=== PATIENT | female | born 1955 | race Caucasian/White ===

== ENCOUNTER → 2022-09-19 09:23 | Outpatient (CLI) | payer MEDICARE, BC, SELFPAY ==
--- NOTE | 2022-09-19 09:27 | XR_ITS ---
FINAL REPORT TECHNIQUE: Bone densitometry calculations of the lumbar spine and left hip were obtained. CLINICAL HISTORY: post menopausal FINDINGS: DEXA BONE DENSITY AXIAL SKELETON Using L1-4, the bone mineral density of the spine is 1.030 g/cm2, corresponding to T-score of -0.2. Note these values are falsely elevated secondary to hypertrophic changes. Using the left hip, the bone mineral density of the femoral neck is 0.615 g/cm2, corresponding to a T-score of -2.7. NOTE: T-score: Standard deviation compared with peak bone mass of young adult mean. *Following the recommendations of the International Society of Bone Densitometry, classification of hip BMD is based on the lower of two T-scores; total hip or femoral neck. IMPRESSION: Osteoporosis: Lowest T-score is at or below -2.5. This patient's T-score meets the World Health Organization criteria for osteoporosis. Reviewed, Interpreted and Dictated by Santosh Quiñones III, MD Transcribed by Poly Conti Authenticated and [facility]
--- NOTE | 2022-09-19 09:27 | MM_ITS ---
PROCEDURE INFORMATION: Exam: MG Bilateral Screening 3D Mammography Exam date and time: 09/19/2022 9:42 AM Age: 67 years old Clinical indication: Screening examination TECHNIQUE: Imaging protocol: Bilateral Screening tomosynthesis and 2D mammography including computer-aided detection (CAD) when performed. COMPARISON: No relevant prior studies available. FINDINGS: MAMMOGRAPHY: Breast composition: There are scattered areas of fibroglandular density. Mass: None. Architectural distortion: None. Calcifications: No suspicious calcifications. Asymmetric density: None. Skin thickening: None. Axillary adenopathy: None. IMPRESSION: No mammographic evidence of malignancy. Annual screening is recommended unless otherwise clinically indicated. ASSESSMENT: BI-RADS Category 1: Negative
== END ==
PROVIDERS: Visit Provider Family Medicine
DX: Z12.31 Encounter for screening mammogram for malignant neoplasm of breast (principal); Z78.0 Asymptomatic menopausal state
CPT/HCPCS: 77063; 77067; 77080

== ENCOUNTER 2023-06-15 09:36 | Emergency (ER) | payer MEDICARE, BC, SELFPAY ==
[2023-06-15 09:38] VITALS: BP 168/71; PULSE 62; RESP 19; TEMP 36.6; O2SAT 98; BMI 53.1
[2023-06-15 09:43] VITALS: BP 168/71; PULSE 56; O2SAT 100
--- NOTE | 2023-06-15 09:46 | PC.NURSE ---
Dr. Villarreal at [facility] for pt eval
[2023-06-15 10:01] VITALS: BP 155/58; PULSE 49; RESP 18; O2SAT 100
--- NOTE | 2023-06-15 10:02 | HMH.EDGENADL ---
Discharge Plan Disposition Patient Disposition: Home, Self-Care Prescriptions Prescriptions: New prednisone 20 mg tablet 40 mg PO BID 5 Days Qty: 20 0RF No Action aspirin 325 mg Tablet 325 mg PO DAILY alendronate 70 mg tablet 70 mg PO DIRECTED diltiazem HCl 360 mg capsule,extended release 24hr 360 mg PO DAILY omeprazole 20 mg capsule,delayed release(DR/EC) 20 mg PO DAILY furosemide 20 mg tablet 20 mg PO DAILYP PRN (Reason: Fluid) lovastatin 20 mg tablet 20 mg PO DAILY Referrals Follow up/Referrals: Myrtle Jeffries MD [Primary Care Provider] - See instructions Devante Velásquez PT [Physical Therapist] - See instructions Activity Restrictions/Add. Instructions Additional Instructions/Restrictions: Take prednisone once daily in the morning for 5 days. Physical therapy referral has also been placed and information is here, you can call Saturday to schedule appointments. Call your family doctor to establish care for this visit to the emergency department and schedule follow-up within 48 hours to ensure improvement. If you have any worsening of your condition or any other concerning signs or symptoms, return to the emergency department or your primary care doctor for further evaluation. Clinical Impressions Clinical Impression: Cervical radiculopathy at C6 Discharge ED Provider: Martin Villarreal General Adult HPI General Chief complaint: PAIN Stated complaint: left shoulder and arm pain Time Seen by Provider: 06/15/23 09:40 Mode of Arrival: Family Vehicle Source of Information: Patient Limitations: No Limitations Description of Symptoms (Recalled from ER Triage Doc. by RN): Pt c/o left shoulder pain that began upon waking up on . Reports many years ago she had a pinched nerve in her left shoulder. Reports tylenol helps but has been worsening. She has a hx of afib and takes ASA 325mg daily & Cardizem 360mg daily. Denies any SOA, chest pain, or palpitations. She also reports parathesia and shooting pain her left arm. History of Present Illness HPI narrative: Is a 67-year-old female with history of chronic left shoulder pain, A-fib on daily aspirin and Cardizem presenting with left shoulder pain. Patient states that she had trouble with her shoulder about 10 to 12 months ago, made better with steroid, muscle relaxer. Has never sought physical therapy for it. 2 days prior to arrival, patient woke up on 9/7 with pain in her left shoulder. Had intermittent shooting pain down her right arm toward her thumb with associated tingling in her hand. Denies injury, heavy lifting, weakness, left lower extremity symptoms, any other neurologic deficits, chest pain, shortness of breath, or any other concerns. Related Data Home Medications Medication Instructions Recorded Confirmed alendronate 70 mg tablet 70 mg PO DIRECTED osteo 06/15/23 06/15/23 aspirin 325 mg tablet 325 mg PO DAILY afib 06/15/23 06/15/23 diltiazem HCl 360 mg 360 mg PO DAILY afib 06/15/23 06/15/23 capsule,extended release 24 hr furosemide 20 mg tablet 20 mg PO DAILYP PRN Fluid 06/15/23 06/15/23 lovastatin 20 mg tablet 20 mg PO DAILY High Cholesterol 06/15/23 06/15/23 omeprazole 20 mg capsule,delayed 20 mg PO DAILY gerd 06/15/23 06/15/23 release Previous Rx's Medication Instructions Recorded prednisone 20 mg tablet 40 mg PO BID 5 days #20 tabs 06/15/23 Allergies Allergy/AdvReac Type Severity Reaction Status Date / Time No Known Allergies Allergy Verified 06/15/23 10:07 [facility] Disclaimer: The information contained in this section may have been updated after the patient was seen, as this information can be updated by other users. Medical History (Updated 06/15/23 @ 10:10 by Martin Villarreal MD) A-fib Fluid overload GERD (gastroesophageal reflux disease) Osteoporosis Surgical History (Updated 06/15/23 @ 10:07 by Fiorella Jaquez RN) Hx of cholecystectomy Social History [facility]
[2023-06-15 10:33] VITALS: BP 150/60; PULSE 52; RESP 17; TEMP 36.7; O2SAT 100
== END 2023-06-15 10:35 | disposition home or self-care (01) ==
PROVIDERS: Emergency Provider Emergency Medicine; PCP Family Medicine
DX: M54.12 Radiculopathy, cervical region (principal); M25.512 Pain in left shoulder; I48.91 Unspecified atrial fibrillation; K21.9 Gastro-esophageal reflux disease without esophagitis; M81.8 Other osteoporosis without current pathological fracture; Z79.82 Long term (current) use of aspirin
CPT/HCPCS: 99283

== ENCOUNTER → 2023-06-20 12:45 | Outpatient (CLI) | payer MEDICARE, BC, SELFPAY ==
--- NOTE | 2023-06-20 12:51 | XR_ITS ---
FINAL REPORT CLINICAL HISTORY: CERVICAL DISC DISORDER W/MYELOPATHY COMPARISON: None FINDINGS: CERVICAL SPINE 7 views were obtained. There is no acute fracture or malalignment. Inter-vertebral disc and vertebral body heights are preserved. Cervical lordosis is preserved. Facet joints are properly aligned. There is mild degenerative change with multilevel osteophytes. IMPRESSION: Degenerative change without acute process. Reviewed, Interpreted and Dictated by Santosh Quiñones III, MD Transcribed by Ale Pascal Authenticated and . [facility]
== END ==
PROVIDERS: PCP Family Medicine; Visit Provider Family Medicine
DX: M50.03 Cervical disc disorder with myelopathy, cervicothoracic region (principal)
CPT/HCPCS: 72050

== ENCOUNTER 2023-09-25 10:41 | Emergency (ER) | payer MEDICARE, BC, SELFPAY ==
[2023-09-25] VITALS (14 sets, daily range): BP systolic 99–142; BP diastolic 38–58; PULSE 43–59; RESP 14–19; TEMP 37.1; O2SAT 97–100; BMI 49.8
--- NOTE | 2023-09-25 10:58 | CT_ITS ---
FINAL REPORT TECHNIQUE: Axial images through the abdomen and pelvis were performed without contrast. This study was performed with techniques to keep radiation doses as low as reasonably achievable, (ALARA). Individualized dose reduction techniques using automated exposure control or adjustment of mA and/or kV according to the patient's size were employed. CLINICAL HISTORY: right flank and midline L spine pain non trauma FINDINGS: Abdomen: The lung bases are clear. There is a small sliding-type hiatal hernia. The liver parenchyma is homogeneous. The gallbladder is surgically absent. The spleen, pancreas, adrenals and kidneys are unremarkable. Pelvis: The urinary bladder is unremarkable. The appendix is normal. The uterus is anteverted and eccentric to the left. There are few small diverticuli throughout the colon, particularly in the ascending colon. IMPRESSION: No renal stone or obstruction. Reviewed, Interpreted and Dictated by Vimal Owen MD Transcribed by Sarah Matute Authenticated and . [facility]
--- NOTE | 2023-09-25 10:58 | CT_ITS ---
FINAL REPORT TECHNIQUE: Axial images were obtained of the lumbar spine by computed tomography. Coronal and sagittal reconstruction process performed. This study was performed with techniques to keep radiation doses as low as reasonably achievable (ALARA). Individualized dose reduction techniques using automated exposure control or adjustment of mA and/or kV according to the patient''s size were employed. CLINICAL HISTORY: right flank and midline L spine pain non trauma FINDINGS: Lumbar vertebrae show normal height. There is moderate disc space narrowing, most evident at L2-3 and L5-S1. There is moderate anterior osteophyte formation throughout the lower thoracic and upper lumbar spine. There is no malalignment. The facets are properly aligned. T12-L1: No significant disc bulge or protrusion. L1-2: No significant disc bulge or protrusion. L2-3: Mild diffuse disc bulge is present with mild bilateral neural foraminal narrowing. L3-4: Mild diffuse disc bulge is present with mild bilateral neural foraminal narrowing. L4-5: Moderate diffuse disc bulge is present. There is mild to moderate bilateral neural foraminal narrowing. L5-S1: Mild diffuse disc bulge is present with mild bilateral neural foraminal narrowing. IMPRESSION: Diffuse changes of degenerative disc disease, most evident at L4-5. Reviewed, Interpreted and Dictated by Vimal Owen MD Transcribed by Sarah Matute Authenticated and [facility]
--- NOTE | 2023-09-25 10:59 | HMH.EDGENADL ---
Discharge Plan Disposition Patient Disposition: Home, Self-Care Prescriptions Prescriptions: New ibuprofen 800 mg tablet 800 mg PO TID PRN (Reason: pain) 7 Days Qty: 20 0RF cyclobenzaprine 5 mg tablet 5 mg PO TID PRN (Reason: muscle spasm) 5 Days Qty: 15 0RF cefdinir 300 mg capsule 300 mg PO BID 7 Days Qty: 14 0RF No Action aspirin 325 mg Tablet 325 mg PO DAILY alendronate 70 mg tablet 70 mg PO DIRECTED diltiazem HCl 360 mg capsule,extended release 24hr 360 mg PO DAILY omeprazole 20 mg capsule,delayed release(DR/EC) 20 mg PO DAILY furosemide 20 mg tablet 20 mg PO DAILYP PRN (Reason: Fluid) lovastatin 20 mg tablet 20 mg PO DAILY prednisone 20 mg tablet 40 mg PO BID 5 Days Qty: 20 0RF Referrals Follow up/Referrals: Myrtle Jeffries MD [Primary Care Provider] - See instructions Activity Restrictions/Add. Instructions Additional Instructions/Restrictions: No evidence of any kidney stone or other emergent medical condition other than a urinary tract infection. Given your flank pain we will treat you for pyelonephritis which is an infection of your kidney but I suspect you have a component of a musculoskeletal strain which we will treat you for as well. Please return emergency department with high fevers pain that is unrelenting or any other concerns. Otherwise you may follow-up with primary care doctor as previously instructed. Clinical Impressions Clinical Impression: Acute right flank pain, Lumbar strain, Pyelonephritis Instructions Patient Instructions: DI for Acute Abdominal Pain Discharge ED Provider: Clarice Keating General Adult HPI General Chief complaint: Abdominal Pain Stated complaint: right side pain, back pain Time Seen by Provider: 09/25/23 10:51 History of Present Illness HPI narrative: Patient is a 68-year-old female presents today with lower back pain and right flank pain has been nontraumatic over the last 3 weeks and has been progressively worsening. She has a history of cervical radiculopathy and known osteoporosis denies any specific trauma. Denies any radiation down to her lower legs, urinary retention, bowel or bladder incontinence, lower extremity paralysis, history of cancer, history of fever or injection drug use or any saddle anesthesia. States the pain has been in the midline but also on the right flank radiating into the right groin. Denies any hematuria history of kidney stones any dysuria urgency frequency. Dates this is primarily worse with movement and touch. Related Data Home Medications Medication Instructions Recorded Confirmed alendronate 70 mg tablet 70 mg PO DIRECTED osteo 06/15/23 06/15/23 aspirin 325 mg tablet 325 mg PO DAILY afib 06/15/23 06/15/23 diltiazem HCl 360 mg 360 mg PO DAILY afib 06/15/23 06/15/23 capsule,extended release 24 hr furosemide 20 mg tablet 20 mg PO DAILYP PRN Fluid 06/15/23 06/15/23 lovastatin 20 mg tablet 20 mg PO DAILY High Cholesterol 06/15/23 06/15/23 omeprazole 20 mg capsule,delayed 20 mg PO DAILY gerd 06/15/23 06/15/23 release Previous Rx's Medication Instructions Recorded prednisone 20 mg tablet 40 mg PO BID 5 days #20 tabs 06/15/23 cefdinir 300 mg capsule 300 mg PO BID 7 days #14 caps 09/25/23 cyclobenzaprine 5 mg tablet 5 mg PO TID PRN muscle spasm 5 09/25/23 days #15 tabs ibuprofen 800 mg tablet 800 mg PO TID PRN pain 7 days #20 09/25/23 tabs Allergies Allergy/AdvReac Type Severity Reaction Status Date / Time No Known Allergies Allergy Verified 06/15/23 10:07 [facility] Disclaimer: The information contained in this section may have been updated after the patient was seen, as this information can be updated by other users. Medical History (Updated 09/25/23 @ 13:12 by Clarice Keating MD) A-fib Fluid overload GERD (gastroesophageal reflux disease) Osteoporosis Surgical History (Updated 06/15/23 @ 10:07 by Fiorella Jaquez RN) Hx of c
[2023-09-25 11:05] LABS: Microscopic, Urine URINE MICROSCOPIC (MICROSCOPIC)
[2023-09-25 11:18] LABS: Basophils % 0.6 % (0.1-2.0); Eosinophils # 0.1 K/mm3 (0.0-0.4); Eosinophils % 1.3 % (0.1-12.0); Hematocrit 41.4 % (37.0-47.0); Hemoglobin 13.8 g/dL (12.2-16.2); Lymphocytes # 1.4 K/mm3 (0.7-4.5); Lymphocytes % 24.4 % (10-50); Mean Corpuscular HGB Conc 33.4 g/dL (31.8-35.4); Mean Corpuscular Hemoglobin 31.8 pg (27.0-31.2); Mean Corpuscular Volume 95.4 fl (81-99); Mean Platelet Volume 6.6 fl (7.4-10.4); Monocytes # 0.3 K/mm3 (0.1-1.0); Monocytes % 4.5 % (1.7-9.3); Neutrophils # 3.9 K/mm3 (1.8-7.8); Neutrophils % 69.2 % (37.0-80.0); Platelet Count 307 K/mm3 (142-424); Red Blood Count 4.34 M/mm3 (4.20-5.40); Red Cell Distribution Width 13.7 % (11.5-17.5); White Blood Count 5.7 K/mm3 (4.8-10.8)
[2023-09-25 11:19] LABS: Chloride 107 mmol/L (98-107); Potassium 4.1 mmoL/L (3.5-5.1); Sodium 142 mmol/L (136-145)
[2023-09-25 11:22] LABS: Alanine Aminotransferase 26 U/L (12-78); Albumin Level 4.5 g/dl (3.5-5.0); Albumin/Globulin Ratio 1.3 (1.1-1.8); Alkaline Phosphatase 176 U/L (38-126); Anion Gap 13.1 mEq/L (5-15); Aspartate Amino Transferase 31 U/L (14-36); Bilirubin,Total 0.8 mg/dl (0.2-1.3); Blood Urea Nitrogen 21 mg/dl (7-17); Carbon Dioxide 26 mmol/L (22.0-30.0); Creatinine Clearance Estimated 37 mL/min (50-200); Estimated Glomerular Filt Rate 41 ml/min (>60); GFR (African American) 50 ML/MIN (>60); Globulin 3.6 g/dL (1.3-3.2); Total Protein,Serum 8.1 g/dl (6.3-8.2)
[2023-09-25 11:23] LABS: Calcium 8.8 mg/dl (8.4-10.2); Glucose 111 mg/dl (74-100)
[2023-09-25 11:29] LABS: Appearance,Urine CLEAR (Clear); Blood, Urine Negative (Negative); Color,Urine YELLOW (Yellow); Glucose,Urine (UA) Negative (Negative); Ketones,Urine Negative (Negative); Leukocyte Esterase,Urine 1+ (Negative); Nitrate,Urine Negative (Negative); PH,Urine 5.5 (5.0-8.5); Protein,Urine TRACE (Negative); Specific Gravity, Urine >= 1.030 (1.005-1.030); Urobilinogen,Urine 0.2 EU/dl (0.2)
[2023-09-25 11:52] LABS: Bilirubin,Urine 1+ (Negative)
[2023-09-25 12:04] LABS: Bacteria,Urine 2+ /lpf; WBC,Urine 20-50 #/hpf (0-3)
--- NOTE | 2023-09-29 16:49 | PC.NURSE ---
urine results show K.pneumoniae, pt dc on cefdinir, aware, no further action
== END 2023-09-25 13:47 | disposition home or self-care (01) ==
PROVIDERS: Emergency Provider Student in an Organized Health Care Education/Training Program; PCP Family Medicine
DX: R10.9 Unspecified abdominal pain (principal); S39.012A Strain of muscle, fascia and tendon of lower back, initial encounter; N12 Tubulo-interstitial nephritis, not specified as acute or chronic; I48.91 Unspecified atrial fibrillation; X58.XXXA Exposure to other specified factors, initial encounter
CPT/HCPCS: 72131; 74176; 80053; 81001; 85025; 87086; 96361; 96374; 99285

== ENCOUNTER 2023-12-23 08:21 | Outpatient (CLI) | payer MEDICARE, BC, SELFPAY ==
--- NOTE | 2023-12-23 08:25 | MM_ITS ---
PROCEDURE INFORMATION: Exam: MG Bilateral Screening 3D Mammography Exam date and time: 12/23/2023 8:17 AM Age: 68 years old Clinical indication: Screening examination TECHNIQUE: Imaging protocol: Bilateral Screening tomosynthesis and 2D mammography including computer-aided detection (CAD) when performed. COMPARISON: MG MM DIG SCREENING MAMM BI W/CAD 09/19/2022 9:42 AM FINDINGS: MAMMOGRAPHY: Breast composition: There are scattered areas of fibroglandular density. Mass: None. Architectural distortion: None. Calcifications: No suspicious calcifications. Asymmetric density: None. Skin thickening: None. Axillary adenopathy: None. IMPRESSION: No mammographic evidence of malignancy. Annual screening is recommended unless otherwise clinically indicated. ASSESSMENT: BI-RADS Category 1: Negative
--- NOTE | 2023-12-23 08:25 | XR_ITS ---
FINAL REPORT CLINICAL HISTORY: SCREENING COMPARISON: None FINDINGS: Using L1-4, the bone mineral density of the spine is 1.203 g/cm2, corresponding to T-score of 1.4 which is within normal limits but likely falsely elevated secondary to hypertrophic changes. Using the left hip, the bone mineral density of the femoral neck is 0.662 g/cm2, corresponding to a T-score of -2.3 which is consistent with low bone density. Using the right hip, the bone mineral density of the femoral neck is 0.654 g/cm2, corresponding to a T-score of -1.8 which is consistent with low bone density. FRAX not reported because patient being treated for osteoporosis. NOTE: T-score: Standard deviation compared with peak bone mass of young adult mean. *Following the recommendations of the International Society of Bone densitometry, classification of hip BMD is based on the lower of two T-scores; total hip or femoral neck. IMPRESSION: Diminished bone mineral density consistent with low bone density. Reviewed, Interpreted and Dictated by Santosh Quiñones III, MD Transcribed by Ale Pascal Authenticated and . [facility]
--- NOTE | 2023-12-23 09:35 | XR_ITS ---
FINAL REPORT CLINICAL HISTORY: left knee pain, arthritis FINDINGS: Three views of the left knee reveal no evidence of fracture or dislocation. The bony alignment is normal. There are moderate and severe degenerative changes, worse involving the medial compartment. There is no evidence of joint effusion. No localized soft tissue abnormality is seen. IMPRESSION: Degenerative changes with no acute abnormality identified. Reviewed, Interpreted and Dictated by Santosh Quiñones III, MD Transcribed by Tati Siegel Authenticated and [facility]
--- NOTE | 2023-12-23 09:35 | XR_ITS ---
FINAL REPORT CLINICAL HISTORY: BILATERAL KNEE PAIN COMPARISON: None FINDINGS: Three views of the right knee reveal no evidence of fracture or dislocation. The bony alignment is normal. Severe degenerative change is present in the knee, most severe in the medial compartment. There is no evidence of joint effusion. No localized soft tissue abnormality is identified. IMPRESSION: Severe degenerative change, most severe in the medial compartment. Reviewed, Interpreted and Dictated by Santosh Quiñones III, MD Transcribed by Celestina Irvin Authenticated and [facility]
== END 2023-12-23 23:59 ==
LOC: RAD 08:21
PROVIDERS: PCP Family Medicine; Visit Provider Family Medicine
DX: Z12.31 Encounter for screening mammogram for malignant neoplasm of breast (principal); Z13.820 Encounter for screening for osteoporosis; Z78.0 Asymptomatic menopausal state; M25.561 Pain in right knee; M25.562 Pain in left knee
CPT/HCPCS: 73562; 77063; 77067; 77080

== ENCOUNTER 2024-12-25 12:51 | Outpatient (CLI) | payer MEDICARE, BC, SELFPAY ==
--- NOTE | 2024-12-25 12:54 | MM_ITS ---
PROCEDURE INFORMATION: Exam: MG Bilateral Screening 3D Mammography Exam date and time: 12/25/2024 12:57 PM Age: 69 years old Clinical indication: Screening examination. A maternal aunt had breast cancer. TECHNIQUE: Imaging protocol: Bilateral Screening tomosynthesis and 2D mammography including computer-aided detection (CAD) when performed. COMPARISON: 1. MG MM DIG SCREENING MAMM BI W/CAD 12/23/2023 8:17 AM 2. MG MM DIG SCREENING MAMM BI W/CAD 09/19/2022 9:42 AM FINDINGS: MAMMOGRAPHY: Breast composition: There are scattered areas of fibroglandular density. Mass: None. Architectural distortion: None. Calcifications: No suspicious calcifications. Asymmetric density: No developing asymmetry. Skin thickening: None. Axillary adenopathy: None. IMPRESSION: No mammographic evidence of malignancy. Annual screening is recommended unless otherwise clinically indicated. ASSESSMENT: BI-RADS Category 1: Negative.
== END 2024-12-25 23:59 | disposition home or self-care (01) ==
LOC: RAD 12:52
PROVIDERS: PCP Family Medicine; Visit Provider Family Medicine
DX: Z12.31 Encounter for screening mammogram for malignant neoplasm of breast (principal)
CPT/HCPCS: 77063; 77067

== ENCOUNTER 2025-07-11 12:08 | Outpatient (CLI) | payer MEDICARE, BC, SELFPAY ==
--- OUTSIDE RECORDS SUMMARY | 2025-07-12 12:11 | XMS_ITS | Clinical Summary ---
Author Organization [facility] Address [address] [place] [address] Care Team [address] Care [address] Assistant Name Role Phone Myrtle Jeffries MD Primary Care Provider [phone] Allergies No known active allergies Medications omeprazole (priLOSEC) 20 MG capsule Take 1 capsule by mouth Daily. 4 Active furosemide (LASIX) 20 MG tablet Take 1 tablet by mouth Daily. 4 Active Cholecalciferol 25 MCG (1000 UT) tablet Take 1 tablet by mouth Daily. Active vitamin B-12 (CYANOCOBALAMIN) 1000 MCG tablet Take 1 tablet by mouth Daily. Active acetaminophen-cod eine (TYLENOL with CODEINE #3) 300-30 MG per tablet Take 1 tablet by mouth Every 4 (Four) Hours As Needed for Moderate Pain. Active lovastatin (MEVACOR) 40 MG tablet 5 Active apixaban (Eliquis) 5 MG tablet tabletIndications :Chronic atrial fibrillation Take 1 tablet by mouth 2 (Two) Times a Day. 70 tablet 5 Active Active Problems Problem Noted Date Diagnosed Date Hypotension 04/02/2024 A-fib 04/01/2024 Hypotension after procedure 04/01/2024 Bradycardia, drug induced 02/17/2024 Overview (02/17/2024): Decrease diltiazem from 360 to 300 mg. Assessment & Plan (08/10/2024 6:15 PM EST): Stable. Asymptomatic. May need pacemaker in the future but for now doing well. Assessment & Plan (04/14/2024 10:36 AM EDT): Diltiazem on hold due to significant bradycardia. Abnormal nuclear stress test 02/17/2024 Assessment & Plan (04/14/2024 10:49 AM EDT): She completed a nuclear stress test on 02/10/2024 that revealed a moderate-sized area of possible anteroapical ischemia, intermediate risk study. She underwent a left heart cath on 03/31/2024 that revealed 30-40% proximal LAD stenosis with normal IFR 0.97, otherwise normal coronary arteries. Lipid panel from 03/31/2024 reviewed. Total cholesterol 190, triglycerides 99, HDL 61, LDL 101. LDL is not currently at goal. We will consider increasing statin dose at follow- up visit. Assessment & Plan (02/17/2024 10:39 AM EDT): She completed a nuclear stress test on 02/10/2024 that revealed a moderate-sized area of possible anteroapical ischemia, intermediate risk study. She denies current chest pain but continues to experience shortness of breath on exertion. We discussed further cardiac testing including left heart cath. Patient is agreeable but is currently taking care of her who is in hospice care. She would like to hold off on the heart cath at this time due to to taking care of her . She will call back and let us know when she is ready to schedule the heart cath. Instructed her to go to the emergency department if she experiences chest pain or worsening symptoms. She verbalized understanding. - Left heart cath, she will call back when she is ready to schedule Abnormal electrocardiogram 02/05/2024 Overview (02/05/2024): Nonspecific ST-T wave abnormalities. Paroxysmal atrial fibrillation 02/05/2024 Assessment & Plan (11/09/2024 6:20 PM EST): Discussed Jesica beaulieu. Unfortunately she does not qualify for assistance at this time. May be able to do Coumadin in the future but that unfortunately seems like her only other option. Assessment & Plan (08/10/2024 6:15 PM EST): May switch to Xarelto after the beginning of the year. Doing well currently on Eliquis. Samples provided. Orders: apixaban (Eliquis) 5 MG tablet tablet; Take 1 tablet by mouth 2 (Two) Times a Day. CBC & Differential; Future Assessment & Plan (04/14/2024 10:51 AM EDT): Holter monitor revealed 100% A-fib burden with pauses up to 2.4 seconds in A- fib. Average heart rate 51 bpm. Diltiazem was discontinued during hospitalization due to significant bradycardia. Her heart rate has been stable since stopping diltiazem. She has not noticed any palpitations or tachycardia. - Continue Eliquis at current dose Assessment & Plan (02/17/2024 10:34 AM EDT): Holter monitor revealed 100% A-fib burden with pauses up to 2.4 seconds in A- fib. Average heart rate 51 bpm. She was instructed to decrease diltiazem to 300 mg at last office visit but pharmacy never sent her the medication. She continues to take diltiazem 360 mg once daily. Discussed Holter monitor results with Dr. Jacques, no need for pacemaker at this time. We will decrease diltiazem first and reassess symptoms. - Decrease diltiazem to 300 mg, new prescription sent to pharmacy - Continue Eliquis at current dose. Assessment & Plan (02/05/2024 5:41 PM EDT): [id number] equals 3. Age female hypertension. Would stop aspirin and start Eliquis. Ordered today (discontinued/reordered). Will check on prior authorizations and get samples. Check monitor for A-fib burden. Encounters Date Type Department Care Team Description 05/12/2025 Results Follow-Up [facility] [address] [phone] Iliana Jacques MD 05/10/2025 12:30 PM EDT Office Visit [facility] [address] [phone] Iliana Jacques MD Chronic atrial fibrillation (Primary Dx); Hypertension, essential; Swelling of lower extremity; Pure hypercholesterolemia 05/10/2025 Travel from Last 3 Months Family History Medical History Relation Name Comments Heart disease Father Passed @ 45 Heart failure Father Heart disease Maternal Grandfather Cancer Maternal Grandmother Heart disease Maternal Grandmother Heart disease Mother Hyperlipidemia Mother Hypertension Mother Stroke Mother Relation Name Status Comments Father Maternal Grandfather Maternal Grandmother Mother Social History Tobacco Use Types Packs/Day Years Used Date Smoking Tobacco: Never Passive Smoke Exposure: Past Smokeless Tobacco: Never Tobacco Cessation:Counseling Given: Yes Alcohol Use Standard Drinks/Week Comments Not Currently 0 (1 standard drink = 0.6 oz pur e alcohol) AUDIT-C Answer Date Recorded Q1: How often do you have a drink containing alcohol? Never 03/31/2024 Q2: How many drinks containi ng alcohol do you have on a typical day when you are drinking? Patient does not drink Q3: How often do you have si x or more drinks on one occasion? Never 03/31/2024 Abuse Screen Answer Date Recorded Feels Unsafe at Home or Work/School no 03/31/2024 Feels Threatened by Someone no 03/08 Does Anyone Try to Keep You From Having Contact with Others or Doing Things Outside Your Home? no 03/31/2024 Physical Signs of Abuse Present no 03/31/2024 Housing Stability Answer Date Recorded Current Living Arrangements home 03/08 Potentially Unsafe Housing Conditions Not on lino e 03/31/2024 Disabilities Answer Date Recorded Difficulty Concentrating, Remembering or Making Decisions no 03/31/2024 Difficulty Managing Errands Independently no 03/31/2024 Comments Unknown Sex and Gender Information Value Date Recorded Sex Assigned at Female 05/07/2025 4:52 PM EDT Legal Sex Female 12:17 PM EDT Gender Identity Not on file Sexual Orientation Not on file Last Filed Vital Signs Vital Sign Reading Time Taken Comments Blood Pressure 130/80 05/10/2025 12:42 PM EDT Pulse 70 05/10/2025 12:42 PM EDT Temperature 36.7 C (98 F) 04/03/2024 11:12 AM EDT Respiratory Rate 20 04/03/2024 2:43 PM EDT Oxygen Saturation 98% 05/10/2025 12:42 PM EDT Inhaled Oxygen Concentration - - Weight 132 kg (292 lb) 05/10/2025 12:42 PM EDT Height 157.5 cm (5' 2 ) 05/10/2025 12:42 PM EDT Body Mass Index 53.41 05/10/2025 12:42 PM EDT Plan of Treatment Upcoming Encounters Date Type Department Care Team (Late st Contact Info) Description 11/08/2025 10:45 AM EST Office Visit [facility] [address] [place] [address] Iliana Jacques MD [address] [place] [address] Health Maintenance Due Date Last Done Comments DXA SCAN 1955 Pneumococcal Vaccine 50+ (1 of 2 - PCV) 1976 TDAP/TD VACCINES (1 - Tdap) 1976 MAMMOGRAM 1997 COLOGUARD 2002 COLON CANCER SCREENING 5 YEA R SIGMOIDOSCOPY 2002 COLONOSCOPY 2002 [address]AL CANCER SCREENING 2002 CT COLONOGRAPHY 2002 FECAL OCCULT BLOOD TEST 2002 FIT Testing (1 year) 2002 ZOSTER VACCINE (1 of 2) 2007 ANNUAL WELLNESS VISIT 02/05/2024 HEPATITIS C SCREENING 02/05/2024 INFLUENZA VACCINE 05/07/2025 COVID-19 Vaccine ( season) 2025 LIPID PANEL 05/12/2026 05/12/2025, 03/31/2024 Procedures Procedure Name Priority Date/Time Associated Diagnosis Comments COMPREHENSIVE METABOLIC PANEL Routine 05/12/2025 Pure hypercholesterolemia LIPID PANEL Routine 05/12/2025 Pure hypercholesterolemia ECG 12-LEAD Routine 05/10/2025 1:28 PM EDT Chronic atrial fibrillation from Last 3 Months Results * Lipid Panel (05/12/2025) Blood Iliana Jacques MD LAB BLOOD ORDERABLES Final R esult Performing Organization Address [facility]/ZIP Co de Phone Number [facility]
[address] [place] [address], * Comprehensive Metabolic Panel (05/12/2025) Blood Iliana Jacques MD LAB BLOOD ORDERABLES Final R esult Performing Organization Address [facility] Co de Phone Number [facility]
[address] [place] [address], * ECG 12-LEAD (05/10/2025 1:28 PM EDT) Narrative Christal Juárez RegSched Rep - 05/10/2025 1:28 PM EDT Iliana Jacques MD 05/10/2025 1:30 PM ECG 12 Lead Date/Time: 05/10/2025 1:28 PM Performed by: Iliana Jacques MD Authorized by: Iliana Jacques MD Comparison: compared with previous ECG from 02/24/2024 Similar to previous ECG Rhythm: atrial fibrillation Rate: normal Conduction: conduction normal QRS axis: normal Other findings: low voltage Clinical impression: abnormal EKG Procedure Note Iliana Jacques MD - 05/10/2025 12:30 PM EDT Images from the original note were not included. [facility] Provider Note Date: 05/10/2025 Name: Nahomi Galindo : 1955 PCP: Myrtle Jeffries MD Chief Complaint Patient presents with Atrial Fibrillation Pt states she is here today for follow up atrial fib. No chest pain,palpitations or dizziness. She does have SOA when she walks but that isnormal for her. Leg Swelling Pt states she is here today for follow up bilateral leg swelling. HerPCP cut her Lasix 20 mg to 1-2 tabs daily prn. Subjective History of Present Illness Nahomi Galindo is a 69 y.o. female who presents today for follow upfor atrial fib Reports has rare palpitations. No dizziness or chest pain Has shortness of air with walking. Relays that this is normal and notworsening. Reports that primary MD has decreased her lasix dose. Usually taking just1 pill a day. Relays that swelling is about the same. Reports no syncope or falls. EKG updated today Has no new issues or concerns. 05/10/2025 Updated Cardiology history 1. Paroxysmal atrial fibrillation -- A-fib with slow ventricular rate in the 40s throughout heart cath -- now chronic 2023 2. Family history of premature coronary artery disease-father at 45of massive IA 3. 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 100% A-fib, withpauses up to 2.4 seconds in A-fib. Average HR 51bpm. Echocardiogram 02/17/2024-LVEF 62%. Left atrial volume is severelyincreased. Left ventricular diastolic function was not assessed. RVSP ismildly elevated (38 mmHg). Mild pulmonary hypertension. Mild to moderatetricuspid valve regurgitation No Known Allergies Current Outpatient Medications: acetaminophen-codeine (TYLENOL with CODEINE #3) 300-30 MG per tablet,Take 1 tablet by mouth Every 4 (Four) Hours As Needed for Moderate Pain.,Disp: , Rfl: apixaban (Eliquis) 5 MG tablet tablet, Take 1 tablet by mouth 2 (Two)Times a Day., Disp: 70 tablet, Rfl: 0 Cholecalciferol 25 MCG (1000 UT) tablet, Take 1 tablet by mouth Daily.,Disp: , Rfl: furosemide (LASIX) 20 MG tablet, Take 1 tablet by mouth Daily. (Patienttaking differently: Take 1 tablet by mouth. 1-2 tabs daily prn), Disp: ,Rfl: lovastatin (MEVACOR) 40 MG tablet, , Disp: , Rfl: omeprazole (priLOSEC) 20 MG capsule, Take 1 capsule by mouth Daily.,Disp: , Rfl: vitamin B-12 (CYANOCOBALAMIN) 1000 MCG tablet, Take 1 tablet by mouthDaily., Disp: , Rfl: Past Medical History: Diagnosis Date Edema 2012 GERD (gastroesophageal reflux disease) 2012 Hypertension, benign 2012 Mixed hyperlipidemia 09/2015 Obesity 2020 Paroxysmal A-fib 01/17/2022 Past Surgical History: Procedure Laterality Date CARDIAC CATHETERIZATION N/A 03/31/2024 Procedure: Left Heart Cath; Surgeon: Tony Mohan MD; Location: [facility]; Service: Cardiovascular; Laterality: N/A; CARDIAC CATHETERIZATION 03/31/2024 Procedure: Functional Flow Deloit; Surgeon: Tony Mohan MD;Location: [facility] CATH INVASIVE LOCATION; Service: Cardiovascular;; GALLBLADDER SURGERY INTERVENTIONAL RADIOLOGY PROCEDURE N/A 04/03/2024 Procedure: IR fluoroscopy guided needle placement - Thrombin Injection;Surgeon: Silvino Villanueva MD; Location: [facility] CATH INVASIVE LOCATION;Service: Interventional Radiology; Laterality: N/A; Family History Problem Relation Age of Onset Hypertension Mother Hyperlipidemia Mother Heart disease Mother Stroke Mother Heart disease Father 45 Passed @ 45 Heart failure Father Heart disease Maternal Grandmother Cancer Maternal Grandmother Heart disease Maternal Grandfather Social History Socioeconomic History Marital status: Tobacco Use Smoking status: Never Passive exposure: Past Smokeless tobacco: Never Vaping Use Vaping status: Never Used Substance and Sexual Activity Alcohol use: Not Currently Drug use: Not Currently Sexual activity: Defer Objective Vital Signs: BP 130/80 (BP Location: Right arm, Patient Position: Sitting, Cuff Size:Large Adult) Pulse 70 Ht 157.5 cm (62 ) Wt 132 kg (292 lb) SpO2 98% BMI 53.41 kg/m Estimated body mass index is 53.41 kg/m as calculated from thefollowing: Height as of this encounter: 157.5 cm (62 ). Weight as of this encounter: 132 kg (292 lb). Physical Exam Constitutional: Appearance: Normal appearance. She is well-developed. HENT: Head: Normocephalic and atraumatic. Eyes: General: No scleral icterus. Pupils: Pupils are equal, round, and reactive to light. Cardiovascular: Rate and Rhythm: Normal rate. Rhythm irregular. Heart sounds: Normal heart sounds. No murmur heard. Pulmonary: Breath sounds: Normal breath sounds. No wheezing or rhonchi. Musculoskeletal: Right lower leg: No edema. Left lower leg: No edema. Skin: Capillary Refill: Capillary refill takes less than 2 seconds. Coloration: Skin is not cyanotic. Nails: There is no clubbing. Neurological: Mental Status: She is alert and oriented to person, place, and time. Motor: No weakness. Gait: Gait normal. Psychiatric: Mood and Affect: Mood normal. Behavior: Behavior is cooperative. Thought Content: Thought content normal. Cognition and Memory: Memory normal. ECG 12 Lead Date/Time: 05/10/2025 1:28 PM Performed by: Iliana Jacques MD Authorized by: Iliana Jacques MD Comparison: compared with previousECG from 02/24/2024 Similar to previous ECG Rhythm: atrial fibrillation Rate: normal Conduction: conduction normal QRS axis: normal Other findings: low voltage Clinical impression: abnormal EKG Assessment and Plan Diagnoses and all orders for this visit: 1. Chronic atrial fibrillation (Primary) - apixaban (Eliquis) 5 MG tablet tablet; Take 1 tablet by mouth 2(Two) Times a Day. Dispense: 70 tablet; Refill: 0 2. Hypertension, essential 3. Swelling of lower extremity 4. Pure hypercholesterolemia - Comprehensive Metabolic Panel; Future - Lipid Panel; Future Other orders - ECG 12 Lead PLAN: -using lasix PRN -Htn well controlled, continue current meds -no bleeding side effects on eliquis, discussed LAAO but does not needright now -chronic a fib, rate controlled -Ldl was 127 in december, PCP increased lovastatin to 40mg will recheck now.May need atorvastatin or rosuvastatin Follow Up Return in about 6 months (around 11/10/2025) for Next scheduled follow up. Charli Jacques MD Cardiology and Sleep [facility] 05/10/2025 Please note that this explicitly excludes time spent on other separatebillable services such as performing procedures or test interpretation,when applicable. This note was created using dictation software which occasionallytranscribes nonsensical phrases. Please contact the provider if anyclarification is needed. Iliana Jacques MD ECG ORDERABLES Final Result from Last 3 Months Insurance MEDICARE A [facility] Advance Directives * CPR (Attempt to Resuscitate) (Latest Code Status on File) Date Activated Date Inactivated Comments 04/01/2024 7:53 AM 04/03/2024 5:21 PM Question Answer Comments Code Status (Patient has no pulse and is not breathing): CPR (Attempt to Resuscitate) Medical Interventions (Patie nt has pulse or is breathing): Full Support Level Of Support Discussed With: Patient Care Teams Court Assistant Relationship Specialty Start Date End Date Myrtle Jeffries MD [address] [place] [address] PCP - General Family Medicine 02/04/24
--- OUTSIDE RECORDS SUMMARY | 2025-07-12 12:11 | XMS_ITS ---
Care Plan - [facility], [facility] Created on: July 12, 2025 Nahomi Galindo : 1955 Sex: Female Author Organization [facility] Address [address] [place] [phone] Phone Care Team Providers Care Real Estate Manager Name Role Phone Jet IBARRA, Jam Low Unavailable + [phone] Myrtle Jeffries Unavailable [phone]
--- OUTSIDE RECORDS SUMMARY | 2025-07-12 12:11 | XMS_ITS ---
Author Organization [facility] , [facility] Address [address] [place] [address] Phone Care Team Providers Care Community Organization Worker Name Role Phone Jet IBARRA, Jam Low Unavailable + [phone] Myrtle Jeffries Unavailable [phone] Problems Includes: Active, inactive, and resolved Problems All Visits Onset Date Resolved Date Provider Condition S tatus Joint Pain Left Knee 02/03/2024 Driss Galvin Active Last Documented On 4 8:10AM ; [facility] Plan of Treatment Instructions to patient Lose weight Last Documented On 4 8:16AM ; [facility] Assessments Includes: Assessments for all patient encounters Findings Encounter Date Overweight Physician Specified with Driss Waite PA-C 02/03/2024 Last Documented On 4 8:46AM ; [facility] Instructions Includes: Instructions for all patient encounters Instructions to patient Lose weight Last Documented On 4 8:16AM ; [facility] Medical Equipment - Implanted Devices Includes: Current and historical Devices No Medical Equipment Recorded Medications Includes: Current and historical Medications Current Medications (continue as prescribed) Aspirin 81 MG Oral Tablet Chewable 02/04/2024 Provid er: Diagnosis: Last Documented On 4 11:07AM By Heather Pritchard ; [facility], [facility] Cefuroxime Axetil 250 MG Oral Tablet 02/03/2024 Prov ider: Diagnosis: Last Documented On 4 8:12AM By Gayathri Heart ; [facility], [facility] Esomeprazole Magnesium 20 MG Oral Capsule Delayed Rele ase 02/03/2024 Provider: Diagnosis: Last Documented On 4 8:13AM By Gayathri Heart ; [facility], [facility] Lovastatin 20 MG Oral Tablet 01/30/2024 Provider: Myrtle Jeffries Diagnosis: Last Documented On 4 8:12AM By Gayathri Heart ; [facility], [facility] dilTIAZem HCl ER Coated Bead s 360 MG Oral Capsule Extended Release 24 Hour 12/31/2023 Provider: Myrtle Jeffries Diagnosis: Last Documented On 4 8:12AM By Gayathri Heart ; [facility], [facility] Medications Administered Includes: Administered Medications in patient's chart No Administered Medications Recorded Results Includes: Results from 07/12/2024 through 07/12/2025 No Results Recorded For Specified Dates History of Present Illness History of Present Illness not supported for this document type No History of Present Illness Recorded Social History Description Last Updated Tobacco non-user 02/03/2024 Last Documented On 4 8:46AM ; [facility], [facility] Caffeine use 02/03/2024 Last Documented On 4 8:46AM ; [facility] No recent change in diet 02/03/2024 Last Documented On 4 8:46AM ; [facility], [facility] Not a current smoker. 02/03/2024 Last Documented On 4 8:46AM ; [facility], [facility] Not exercising regularly 02/03/2024 Last Documented On 4 8:46AM ; [facility] Not using alcohol 02/03/2024 Last Documented On 4 8:46AM ; [facility] Not using drugs 02/03/2024 Last Documented On 4 8:46AM ; [facility] Smoking Status Unknown Procedures and Surgical History Surgical History Last Updated History of History of Gallbladder 2023 Last Documented On 4 8:46AM ; [facility], [facility] Medical History Includes: Medical History in patient's chart Description Last Updated History of arthritis 02/03/2024 Last Documented On 4 8:46AM ; [facility], [facility] History of Heartburn / Acid Reflux 02/02 Last Documented On 4 8:46AM ; [facility], [facility] History of History of Blood Clots 2023 Last Documented On 4 8:46AM ; [facility], [facility] History of Irregular Heartbeat 4 Last Documented On 4 8:46AM ; [facility], [facility] History of osteoporosis 02/03/2024 Last Documented On 4 8:46AM ; [facility], [facility] Family History Includes: Family History in patient's chart Description Last Updated Family history of cancer 02/03/2024 Last Documented On 4 8:46AM ; [facility], [facility] Family history of heart disease 02/03/20 24 Last Documented On 4 8:46AM ; [facility], [facility] Family history of osteoporosis 4 Last Documented On 4 8:46AM ; [facility], [facility] Family history of systemic hypertension 02/03/2024 Last Documented On 4 8:46AM ; [facility], [facility] Review of Systems Review of Systems not supported for this document type No Review of Systems Recorded Mental Status Description No anxiety Functional Status No Functional Status Recorded Physical Exam Physical Exam not supported for this document type No Physical Exam Recorded Allergies Includes: Active, inactive, and resolved Allergies No Known Allergies Insurance Includes: Active Insurance Policies Plan Name Member ID Group # Subscriber Relationship Effect zulma Dates 1 - Medicare Part B [facility] [id number] Yoselinjayne Bañuelos Josie Self 2 - [facility] [id number] Yoselinjayne Galindo Self Clinical Notes Includes: Signed Clinical Notes starting from 09/20/2022 No Clinical Notes Recorded
--- OUTSIDE RECORDS SUMMARY | 2025-07-12 12:11 | XMS_ITS | Clinical Summary ---
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 Balance/gait along with postural blood pressure, vision and home fall hazards have been assessed. Medications have been reviewed, and recommendations made with regard to contributing factors for future falls. Plan of care: Consideration of vitamin D supplementation along with balance and strength training with consideration for formal physical therapy has been discussed with the patient. - Last Documented On 02/03/2024 8:46AM ; [facility] Patient presents today for evaluation of bilateral knee pain, stiffness significantly interfering with walking, sleep, quality of life left greater than right. For this she is tried anti-inflammatories, injection, Tylenol, weight loss strategies without benefit. Today we discussed left TKA performed at [facility] surgery center. High risk for needing hospital surgery instead of outpatient surgery center due to BMI, lack of medical care over the years does not go to the doctor. Today we reviewed total knee arthroplasty in her is risky, she has large legs, making the procedure difficult, high-risk of permanently painful knee. Risk of infection 7 times higher than normal BMI over 50, stretched skin making closure difficult. Patient expressed understanding of these risks and wants to proceed with surgery scheduling. - Last Documented On 02/03/2024 8:46AM ; [facility], [facility] Instructions to patient Lose weight Last Documented On 4 8:16AM ; [facility] Assessments Includes: Assessments from this encounter Findings - Overweight - Last Documented On 02/03/2024 8:46AM ; [facility], [facility] Severe bilateral knee DJD [id number] left more symptomatic than right - Last Documented On 02/03/2024 8:46AM ; [facility], [facility] Instructions Includes: Instructions from this encounter Instructions to patient Lose weight Last Documented On 4 8:16AM ; [facility], [facility] Medical Equipment - Implanted Devices Includes: Current Devices No Medical Equipment Recorded Medications Includes: Medications discussed during this encounter and other current Medications Current Medications (continue as prescribed) Aspirin 81 MG Oral Tablet Chewable 02/04/2024 Provid er: Diagnosis: Last Documented On 4 11:07AM By Heather Pritchard ; [facility] Cefuroxime Axetil 250 MG Oral Tablet 02/03/2024 Prov ider: Diagnosis: Last Documented On 4 8:12AM By Gayathri Heart ; [facility] Esomeprazole Magnesium 20 MG Oral Capsule Delayed Rele ase 02/03/2024 Provider: Diagnosis: Last Documented On 4 8:13AM By Gayathri Heart ; [facility], [facility] Lovastatin 20 MG Oral Tablet 01/30/2024 Provider: Myrtle Jeffries Diagnosis: Last Documented On 4 8:12AM By Gayathri Heart ; [facility] dilTIAZem HCl ER Coated Bead s 360 MG Oral Capsule Extended Release 24 Hour 12/31/2023 Provider: Myrtle Jeffries Diagnosis: Last Documented On 4 8:12AM By Gayathri Heart ; [facility], [facility] Medications Administered Includes: Administered Medications from this encounter No Administered Medications Recorded Vital Signs Includes: Vital Signs from this encounter Vital Name 02/03/2024 08:11A Height (in) 62 Weight (lb) 280 Body Mass Index 51.2 Body Surface Area 2.2 Note: ab Last Documented: On 02/03/2024 8:11AM ; [facility], [facility] Results Includes: Results discussed during this encounter No Results Recorded For Specified Dates History of Present Illness Includes: History of Present Illness from this encounter HPI Nahomi Galindo is a 68 year old female. - Allergy list reviewed - Problem list reviewed - Medication list reviewed - Patient pain level from 1-10: 5 - No previous treatment. Social History Description Last Updated Tobacco non-user 02/03/2024 Last Documented On 4 8:46AM ; [facility], [facility] Caffeine use 02/03/2024 Last Documented On 4 8:46AM ; [facility], [facility] No recent change in diet 02/03/2024 Last Documented On 4 8:46AM ; [facility], [facility] Not a current smoker. 02/03/2024 Last Documented On 4 8:46AM ; [facility], [facility] Not exercising regularly 02/03/2024 Last Documented On 4 8:46AM ; [facility], [facility] Not using alcohol 02/03/2024 Last Documented On 4 8:46AM ; [facility], [facility] Not using drugs 02/03/2024 Last Documented On 4 8:46AM ; [facility], [facility] Smoking Status Unknown Procedures and Surgical History Includes: Procedures from this encounter Procedures Code Diagnosis Performing Provider Service L ocation Service Date use of tobacco assessment performed 1000F Last Documented On 4 8:16AM ; [facility], [facility] patient screened for future fall risk: documentation of any fall with injury in past year 1100F Last Documented On 4 8:16AM ; [facility], [facility] review of medications documented 1160F Last Documented On 4 8:16AM ; [facility], [facility] an X-ray was performed 58703 Last Documented On 4 8:13AM ; [facility], [facility] Surgical History Last Updated History of History of Gallbladder 2023 Last Documented On 4 8:46AM ; [facility], [facility] Medical History Includes: Medical History addressed during this encounter Description Last Updated History of arthritis 02/03/2024 Last Documented On 4 8:46AM ; [facility], [facility] History of Heartburn / Acid Reflux 02/02 Last Documented On 4 8:46AM ; [facility], [facility] History of History of Blood Clots 2023 Last Documented On 4 8:46AM ; [facility], [facility] History of Irregular Heartbeat 4 Last Documented On 4 8:46AM ; [facility], [facility] History of osteoporosis 02/03/2024 Last Documented On 4 8:46AM ; [facility], [facility] Family History Includes: Family History addressed during this encounter Description Last Updated Family history of cancer 02/03/2024 Last Documented On 4 8:46AM ; [facility], [facility] Family history of heart disease 02/03/20 24 Last Documented On 4 8:46AM ; [facility], [facility] Family history of osteoporosis 4 Last Documented On 4 8:46AM ; [facility], [facility] Family history of systemic hypertension 02/03/2024 Last Documented On 4 8:46AM ; [facility], [facility] Review of Systems Includes: Review of Systems from this encounter Systemic: Not feeling tired and no recent weight loss. Recent weight gain. Head: No headache and no sinus pain. Eyes: No vision problems, no Cataracts, no Glasses/Contacts, and no Glaucoma. Otolaryngeal: No hearing loss and no tinnitus. Cardiovascular: No chest pain or discomfort, no palpitations, and no Hypertension. High Cholesterol. Pulmonary: No daytime asthma symptoms and no chronic cough. No wheezing. Gastrointestinal: No heartburn and no abdominal pain. No Indigestion. Acid Reflux. No Peptic Ulcer, no GI Stomach Bleed, and no Ulcers. Endocrine: No hot flashes, no muscle weakness, no Diabetes, no Hypothyroid, and no Hyperthyroid. Hematologic: No easy bleeding, no tendency for easy bruising, and no Anemia. Musculoskeletal: Arthritis and lower back pain. No soft tissue swelling and no localized joint pain. Neurological: No dizziness, no convulsions, and no numbness. Psychological: No anxiety, no emotional lability, no depression, and no insomnia. Not crying for no reason. Skin: No dry skin. No Ulcers, no Scars, and no rash. Allergic and Immunologic: No complaint of seasonal allergic reaction. Mental Status Includes: Mental Status from this encounter Description No anxiety Functional Status Includes: Functional Status from this encounter No Functional Status Recorded Physical Exam Includes: Physical Exam from this encounter Allergies Includes: Active Allergies No Known Allergies Encounters Encounter Provider Location Date Check-In Time Check-Out Time Diagnosis Physician Specified Driss Waite PA-C [facility] 02/03/20 24 7:52AM 8:42AM Overweight Insurance Includes: Active Insurance Policies Plan Name Member ID Group # Subscriber Relationship Effect zulma Dates 1 - Medicare [place] [id number] Nahomi Galindo Self 2 - [employer] [place] [id number] Nahomi Galindo Self Clinical Notes Includes: Clinical Notes from this encounter * Progress note Date Encounter Last Documented by 02/03/2024 Physician Specified Last documen polina on 02/03/2024; 8:46 AM, Driss Waite PA-C; [facility], [facility] Active Problems & Conditions - Joint Pain in the Left Knee Subjective Which knee or hip hurts the most? Where on the hip or knee? left knee pain all over pain all the time, aching,pain when she touch the knee Have you had prior knee or hip surgery?no What medicines have you taken for the pain?tylenol sometimes What injections have you tried for the pain?no Do you need a cane or walker to ambulate?no Have you improved your shoes or tried a brace?no Have you tried to lose weight?no Chief Complaint The Chief Complaint is: Left knee pain. Referred Here Referred by. History of Present Illness Nahomi Galindo is a 68 year old female. - Allergy list reviewed - Problem list reviewed - Medication list reviewed - Patient pain level from 1-10: 5 - No previous treatment. Current Medication - Cefuroxime Axetil 250 MG Oral Tablet 0 days, 0 refills - dilTIAZem HCl ER Coated Beads 360 MG Oral Capsule Extended Release 24 Hour 90 days, 0 refills - Esomeprazole Magnesium 20 MG Oral Capsule Delayed Release 0 days, 0 refills - Lovastatin 20 MG Oral Tablet 90 days, 0 refills Past Medical/Surgical History Diagnoses: History of Blood Clots Irregular Heartbeat Heartburn / Acid Reflux. Osteoporosis. Arthritis Surgical: - History of Gallbladder Social History Not a current smoker. Current diet: No recent change in diet. Caffeine use: Caffeine use. Tobacco use: Tobacco non-user. Alcohol: Not using alcohol. Drug Use: Not using drugs. Habits: Not exercising regularly. Allergies - No Known Allergies Family History Cancer Heart disease Systemic hypertension Osteoporosis Review Of Systems Systemic: Not feeling tired and no recent weight loss. Recent weight gain. Head: No headache and no sinus pain. Eyes: No vision problems, no Cataracts, no Glasses/Contacts, and no Glaucoma. Otolaryngeal: No hearing loss and no tinnitus. Cardiovascular: No chest pain or discomfort, no palpitations, and no Hypertension. High Cholesterol. Pulmonary: No daytime asthma symptoms and no chronic cough. No wheezing. Gastrointestinal: No heartburn and no abdominal pain. No Indigestion. Acid Reflux. No Peptic Ulcer, no GI Stomach Bleed, and no Ulcers. Endocrine: No hot flashes, no muscle weakness, no Diabetes, no Hypothyroid, and no Hyperthyroid. Hematologic: No easy bleeding, no tendency for easy bruising, and no Anemia. Musculoskeletal: Arthritis and lower back pain. No soft tissue swelling and no localized joint pain. Neurological: No dizziness, no convulsions, and no numbness. Psychological: No anxiety, no emotional lability, no depression, and no insomnia. Not crying for no reason. Skin: No dry skin. No Ulcers, no Scars, and no rash. Allergic and Immunologic: No complaint of seasonal allergic reaction. Physical Findings - Vitals taken 02/03/2024 08:11 am ab Height 62 in Weight 280 lbs Body Mass Index 51.2 kg/m2 Body Surface Area 2.2 m2 Patient alert and oriented x3 Morbidly obese, carries weight in her legs Waddling gait Bilateral flat feet Bilateral hip motion mildly stiff, equal Right knee exam skin clean, dry and intact Moderate knee swelling, mild effusion Knee varus flexion contracture 5- Knee Flexion 105- Severe MJT, severe LJT, [No] Pes Tenderness Fires TA gastroc and quadriceps Sensation intact to light touch throughout Palpable pulses DP/PT Left knee exam skin clean, dry and intact Moderate knee swelling, mild effusion Knee varus flexion contracture 7- Knee Flexion 88- Severe MJT, severe LJT, [No] Pes Tenderness Fires TA gastroc and quadriceps Sensation intact to light touch throughout Palpable pulses DP/PT Tests Three-view x-ray of the bilateral knees taken today in addition to x-rays brought with the patient today demonstrates severe [id number] DJD Assessment - Overweight Severe bilateral knee DJD [id number] left more symptomatic than right Previous Tests Imaging: X-Ray: An X-ray was performed. Counseling/Education - Lose weight Plan Fall Risk Assessment: This patient has been identified as a fall risk. Balance/gait along with postural blood pressure, vision and home fall hazards have been assessed. Medications have been reviewed, and recommendations made with regard to contributing factors for future falls. Plan of care: Consideration of vitamin D supplementation along with balance and strength training with consideration for formal physical therapy has been discussed with the patient. Patient presents today for evaluation of bilateral knee pain, stiffness significantly interfering with walking, sleep, quality of life left greater than right. For this she is tried anti-inflammatories, injection, Tylenol, weight loss strategies without benefit. Today we discussed left TKA performed at [facility]. High risk for needing hospital surgery instead of outpatient surgery center due to BMI, lack of medical care over the years does not go to the doctor. Today we reviewed total knee arthroplasty in her is risky, she has large legs, making the procedure difficult, high-risk of permanently painful knee. Risk of infection 7 times higher than normal BMI over 50, stretched skin making closure difficult. Patient expressed understanding of these risks and wants to proceed with surgery scheduling. Notes This dictation was done with voice recognition software and may contain errors and omissions. The patient gave verbal consent in the office today to receive our educational [employer] text messages as they prepare and recover from surgery. They understand that this is an automated program, that their responses are not monitored by our office, and that they should not use the messaging program to communicate with our office directly. For urgent medical advice, they know to either call our office or 911 for emergencies Practice Management Use of tobacco assessment performed and patient screened for future fall risk documentation of any fall with injury in past year Review of medications documented. Care Team - Myrtle Jeffries
== END 2025-07-11 23:59 ==
LOC: LAB.DROPOF 07-12 12:09
PROVIDERS: PCP Student in an Organized Health Care Education/Training Program; Visit Provider Student in an Organized Health Care Education/Training Program
DX: N39.0 Urinary tract infection, site not specified (principal)
CPT/HCPCS: 87086; 87088